=== PATIENT | female | born 1990 | race Caucasian/White ===

== ENCOUNTER 2016-05-14 14:12 | Inpatient (IN) | payer BC ==
[~2016-05-14] VITALS: Ht 180.3 cm; Wt 74.1 kg
--- NOTE | ~2016-05-14 | OR ---
[facility] AGE: 26 Y [address] ROOM: [place] [address] LOCATION: [facility] ADMIT DATE: 05/14/2016 OR/Procedure Report DISCHARGE DATE: FAMILY PHYSICIAN: Leann Rodriguez MD ATTENDING PHYSICIAN: Marina Mccann SURGEON: Marina Mccann MD POT FIREMAN: DATE OF PROCEDURE: 05/14/2016 PREOPERATIVE DIAGNOSES: 1. Intrauterine at 37 weeks and 4 days. 2. Active labor. 3. Breech. POSTOPERATIVE DIAGNOSES: 1. Intrauterine at 37 weeks and 4 days. 2. Active labor. 3. Breech. PROCEDURES PERFORMED: Primary low transverse section. ESTIMATED BLOOD LOSS: 600 mL. ANESTHESIA: Epidural/intrathecal. POT FIREMAN SURGEON: Debby Borges MD. Dr. Borges was necessary for adequate visualization of tissues and delivery of the fetus. FINDINGS: A female infant. Apgars were 8 and 9. Weight is 7 pounds 6 ounces. Intact placenta, three-vessel cord. Clear amniotic fluid. Normal uterus, tubes, and ovaries. INDICATIONS: This patient is a 26-year-old, G2, P1-0-0-1 female. She presented to Labor and Delivery at about 6 a.m. I checked her, and felt a bulgy bag of water. She got an epidural when I broke her water to tell that it was breech. Decision was made for a section. The risks, benefits, and alternatives to the procedure were discussed with the patient. She understood the risks to be, but not to be limited to bleeding, infection, and damage to bowel or bladder and surrounding organs. She desired to proceed. PROCEDURE IN DETAIL: The patient was taken to the Operating Room. Anesthesia [facility] 26 [facility] [address] ROOM: [place] [address] LOCATION: [facility] ADMIT DATE: 05/14/2016 OR/Procedure Report DISCHARGE DATE: FAMILY PHYSICIAN: Leann Rodriguez MD ATTENDING PHYSICIAN: Marina Mccann was found be adequate. She was prepped and draped in a dorsal supine position with a leftward tilt. A Pfannenstiel skin incision was made and was carried down through the fascia, and the fascia was incised. The fascial incision was extended. The rectus muscles were . The peritoneum was entered. The bladder blade was inserted. The uterus was incised in a low transverse fashion with the scalpel. The uterine incision was extended with vertical traction. Surgeon's hand was inserted into the uterus. The buttocks were delivered. The rest of the fetus was delivered up to the chest. The arms were swept in front of the chest, and the head was easily delivered. The nose and mouth were bulb suctioned. The cord was clamped and cut. The was handed to the awaiting team. Cord blood was drawn. The placenta was delivered with manual traction. The uterus was exteriorized and cleared of clots and debris. It was repaired with 0 Vicryl in a running locked fashion. It was returned to the abdomen. The gutters were cleared of clots and debris. The fascia was repaired with 0 Vicryl in a running fashion. The subcutaneous adipose tissue was noted to be hemostatic. The skin was closed with 4-0 suture. Steri-Strips were placed. COMPLICATIONS: None. CONDITION: Mom was stable in room. to [facility]. MD JAY CHEUNG/lizy /[id number] d: 05/14/162225 t: 05/15/162001, OPERATIVE SUMMARY
--- NOTE | ~2016-05-14 | DS ---
PATIENT'S NAME: TRUDY [facility]IA [facility] AGE: 26 Y [address] ROOM: [address] [address] LOCATION: BS ADMIT DATE: 05/14/2016 Discharge Summary DISCHARGE DATE: 05/17/2016 FAMILY PHYSICIAN: Leann Rodriguez MD ATTENDING PHYSICIAN: Irene Escalera FINAL DIAGNOSES: 1. Active labor. 2. Breech. 3. Status post primary low-transverse section. REASON FOR ADMISSION: This patient is a 26-year-old, -0-0-1 female, who was admitted to Labor and Delivery in active labor. HOSPITAL COURSE: The patient was admitted. She was in active labor. She got an epidural. Membranes were ruptured and she was noted to be breech. She had a primary low-transverse section. Please see her detailed operative report. Postoperatively, the patient did well. Her postoperative hemoglobin was 10.3 from 12.9. She was ambulating well, urinating without difficulty, asymptomatic from her anemia, and desired to be discharged home on postoperative day #3. DISCHARGE MEDICATIONS: Please see her discharge medication list. DISCHARGE INSTRUCTIONS: The patient was instructed with routine section instructions, and I will see her back in 2 weeks for her visit. IRENE ESCALERA MD AJJ/modl /[id number] d: 05/26/16 08 t: 05/29/16 0952, DISCHARGE SUMMARY
[2016-05-14 14:58] LABS: BASOPHIL % 0.2 %; EOSINOPHIL # 0.1 K/uL (0.0-0.5); EOSINOPHIL % 0.8 %; HEMATOCRIT 36.6 % (33.0-46.0); HEMOGLOBIN 12.9 g/dL (11.0-15.0); IMMATURE GRANULOCYTE # 0.1 K/uL (0.0-0.3); IMMATURE GRANULOCYTE % 0.7 %; LYMPHOCYTE # 1.9 K/uL (0.8-4.0); LYMPHOCYTE % 15.6 %; MCH 31.5 pg (27.0-34.0); MCHC 35.2 gm/dL (32.0-36.5); MCV 89.3 fl (83.0-98.0); MONOCYTE # 0.6 K/uL (0.0-1.0); MPV 10.3 fl (9.4-12.4); NEUTROPHIL # (ANC) 9.5 K/uL (1.8-7.8); NEUTROPHIL % 77.7 %; NRBC % 0 /100WBC (0-0.00); PLATELET COUNT 200 K/uL (150-450); RDW-CV 11.8 % (11.9-14.6); WBC 12.2 K/uL (4.0-11.0)
[2016-05-14] MEDS ORDERED: PRENATAL 1+1)(P1 TAB PO (16:30)
[2016-05-15 04:35] LABS: BASOPHIL % 0.3 %; EOSINOPHIL % 0.2 %; HEMATOCRIT 29.3 % (33.0-46.0); HEMOGLOBIN 10.3 g/dL (11.0-15.0); IMMATURE GRANULOCYTE # 0.1 K/uL (0.0-0.3); IMMATURE GRANULOCYTE % 0.7 %; LYMPHOCYTE # 1.1 K/uL (0.8-4.0); LYMPHOCYTE % 8.7 %; MCH 31.3 pg (27.0-34.0); MCHC 35.2 gm/dL (32.0-36.5); MCV 89.1 fl (83.0-98.0); MONOCYTE # 0.5 K/uL (0.0-1.0); MPV 10.6 fl (9.4-12.4); NEUTROPHIL # (ANC) 10.8 K/uL (1.8-7.8); NEUTROPHIL % 86.1 %; NRBC % 0 /100WBC (0-0.00); RBC 3.29 M/uL (3.50-5.00); RDW-CV 11.9 % (11.9-14.6); WBC 12.5 K/uL (4.0-11.0)
[2016-05-15 04:37] LABS: PLATELET COUNT 146 K/uL (150-450)
--- NOTE | 2016-05-15 05:42 | NUR ---
VSS, lightheaded and nauseous at times, so pt hasn't been up yet. Toradol complete, Percocet due at 1000, Zofran given at 0012, IV saline locked, catheter draining yellow urine with light blood tinge, pt passing gas
--- NOTE | 2016-05-15 16:46 | NUR ---
Last VS: T:97.9 P:62 R: 12 BP: 110/66 Pain ratin Last pain med: Percocet(1) Medicated at: 1655 Effective: Yes R Lung sounds: , L Lung sounds: Fundus:, , Lochia: SMALL Breasts: SOFT/FILLING Nipples: TENDER/INTACT (has oint's) Incision: , Incision appearance: COVERED W/ Incision closure: MICROFOAM DRSG, KNOWS TO REMOVE IN SHOWER TONITE Bowel sounds: Passing flatus: Y Voiding well: Y Significant event: *.RESTFUL DAY, NAUSEA BETTER. WANTS TO SHOWER AT HS & MAY NEED HELP REMOVING ABD DRSG.
--- NOTE | 2016-05-16 06:52 | NUR ---
Patient had pain med at 0530 which was effective/relieved discomfort. Also just breastfed baby at 0530 x10min....baby sleeping well in crib at mother's BS, wants to sleep-in, so not disturbed at this time w/ vital signs. Reminded patient to call if has any questions, needs or concerns. Continue routine post-op c/s. & mother/baby cares today.
--- NOTE | 2016-05-16 17:01 | NUR ---
Last VS: T:97.8 P:58 R: 14 BP: 98/49 Pain ratin-6 Last pain med: Percocet Medicated at: 1655 Effective: Yes R Lung sounds: , L Lung sounds: Fundus: FIRM Lochia: SMALL Breasts: FILLING Nipples: TENDER/INTACT (has oint's) Incision: , Incision appearance: SUTURE/STERI APPROXIMATED Bowel sounds: Passing flatus: Y Voiding well: Y Significant event: *.UP AD NANCY, HAS NOT WALKED HALLS, ONLY ROOM & TO BR. ENCOURAGED TO WALK HALLWAYS W/ OR IF NEEDS NURSE ASSIST.~SHOWERED LAST EVENING AT HS. WANTS 1 PERCOCET/1 MOTRIN ABOUT [id number].
--- NOTE | 2016-05-17 04:44 | NUR ---
vss, fundus firm, at umbilicus, small flow. incision looks good. encouraged pt to ambulate more. plans home today. 1 percocet given at 0117 and motrin given at 0437.
[2016-05-17] MEDS ORDERED: MOTRIN800 MG PO (13:08)
[2016-05-17] MEDS ORDERED: PERCOCET 5-3251 EACH PO (13:09)
--- NOTE | 2016-05-17 18:00 | NUR ---
Last VS: T:98.5 P:79 R: 16 BP: 114/73 Pain ratin. Last pain med:Motrin @ 1710,Tyl @ 1647 Medicated at: Effective: yes R Lung sounds:cl , L Lung sounds:cl Fundus:ff Lochia:small Breasts: filling Nipples: tender,sore Incision: , Incision appearance:approx Incision closure: suture and steri Bowel sounds: Passing flatus:yes Voiding well: yes Significant event: .Headache complaint and stays when resting flat. vss. Home tonight.
[2016-05-18] MEDS ORDERED: TYLENOL EXTRA500 MG PO (13:35)
[2016-05-18] MEDS ORDERED: STOOL SOFTENER100 MG PO (13:35)
== END 2016-05-17 20:55 | disposition disaster alternative care site (69) | DRG 765 ==
LOC: GOBS 14:12
PROVIDERS: Obstetrics & Gynecology; ADMIT Obstetrics & Gynecology
PROC: 10907ZC Drainage of Amniotic Fluid, Therapeutic from Products of Conception, Via Natural or Artificial Opening (ICD-10-PCS; principal; 2016-05-14)
PROC: 10D00Z1 Extraction of Products of Conception, Low, Open Approach (ICD-10-PCS; principal; 2016-05-14)
DX: O64.1XX0 Obstructed labor due to breech presentation, not applicable or unspecified (principal); D62 Acute posthemorrhagic anemia; O90.81 Anemia of the puerperium; Z3A.37 37 weeks gestation of pregnancy; Z37.0 Single live birth
CPT/HCPCS: J1885; J2270; J2405; J2590; J3010; J7120

== ENCOUNTER → 2016-05-18 | Day surgery (SDC) | payer BC ==
[~2016-05-18] VITALS: Ht 177.8 cm; Wt 70.1 kg
[~2016-05-18] MED LIST: MOTRIN800 MG PO; PERCOCET 5-3251 EACH PO; PRENATAL 1+1)(P1 TAB PO; STOOL SOFTENER100 MG PO; TYLENOL EXTRA500 MG PO
--- NOTE | ~2016-05-18 | OR ---
PATIENT'S NAME: TRUDY MARIA [facility] AGE: 26 Y [address] ROOM: [place] [address] [address]: [facility] ADMIT DATE: 05/18/2016 OR/Procedure Report DISCHARGE DATE: FAMILY PHYSICIAN: Leann Rodriguez MD ATTENDING PHYSICIAN: Marina Mccann SURGEON: Maxwell Paiz CRNA CERAMICS ARTIST: DATE OF PROCEDURE: 05/18/2016 PROCEDURE: Epidural blood patch. INDICATION: The patient presents today in admissions at the request of Dr. Marina Mccann for evaluation of postdural puncture headache. The patient demonstrates occipital headache which improves while lying in the supine position and in the dark. The patient's headache seems to become worse as she is up and about and more active, also noting blurry vision. The patient is status post section on May 14, 2016 with a CSE utilized for anesthesia. The patient does appear to have classic symptoms of a post-dural puncture headache. After risks and benefits were discussed and accepted by the patient, the patient was then checked into the [facility] area, where consent was signed. DESCRIPTION OF PROCEDURE: The patient was sitting at the side of the bed, sterilely prepped and draped per usual fashion. 1 mL Xylocaine was given at the L4-L5 interspace for local anesthesia. A 17-gauge Tuohy needle was advanced x1 attempt with ease to loss of saline resistance, and no blood or CSF was noted in the needle at that time. After reaching the epidural space, Emily Álvarez RN obtained blood from the patient's right antecubital area, and 20 mL of blood was aspirated from her arm. At this time, I took 20 mL of the patient's autologous blood and introduced it into the epidural space via the epdural needle. The patient did not have any complaints throughout the procedure. Needle was withdrawn. The patient was laid supine, where she was monitored for approximately 30 minutes. At the end of the 30 minutes, the patient was evaluated. At this time, they noticed her symptoms of headache and blurry vision to be improving. The patient was instructed to contact Dr. Marina Mccann if she had worsening headache symptoms and to also give myself a call as well. PAULINO KENNEDY/elmerl PATIENT'S NAME: TRUDY MARIA [facility] AGE: 26 Y [address] ROOM: [place] [address] LOCATION: [facility] ADMIT DATE: 05/18/2016 OR/Procedure Report DISCHARGE DATE: FAMILY PHYSICIAN: Leann Rodriguez MD ATTENDING PHYSICIAN: Marina Mccann /[id number] CC: Marina Mccann MD d: 05/19/16 0120 t: 05/21/16 0915, OPERATIVE SUMMARY
== END | disposition disaster alternative care site (69) ==
LOC: GSDC 13:14 → GPOC 14:00 → EDSTATUS 14:00
PROC: 3E0S3GC Introduction of Other Therapeutic Substance into Epidural Space, Percutaneous Approach (ICD-10-PCS; principal; 2016-05-18)
DX: G97.1 Other reaction to spinal and lumbar puncture (principal); Z79.899 Other long term (current) drug therapy